=== PATIENT | female | born 1960 | race African-American/Black ===

== ENCOUNTER 2023-03-03 22:27 | Emergency (ER) | payer SELFPAY ==
[~2023-03-03 22:27] MED LIST: LIDOCAINE PATCH REMOVAL MC SCH
[2023-03-03 22:31] VITALS: BP 107/68; PULSE 70; RESP 18; TEMP 98.1; BMI 36.6
[2023-03-03] MEDS ORDERED: ACETAMINOPHEN 1000 MG/100 ML BAG IVPB ONE (23:04)
[2023-03-03] MEDS ORDERED: METHOCARBAMOL 500 MG TABLET PO ONE (23:16)
[2023-03-03] MEDS ORDERED: KETOROLAC TROMETHAMINE 30 MG/1 ML VIAL IM ONE (23:16)
[2023-03-03] MEDS ORDERED: LIDOCAINE 5% TOPICAL PATCH TP ONE (23:16)
[2023-03-03] MEDS ORDERED: METHOCARBAMOL 500 MG TABLET ONE (23:21)
[2023-03-03] MEDS ORDERED: KETOROLAC TROMETHAMINE 15 MG/ML VIAL ONE (23:22)
[2023-03-03] MEDS ORDERED: SODIUM CHLORIDE 0.9% 500 ML INFUS.BAG IV ONE (23:38)
== END 2023-03-04 00:52 | disposition home or self-care (01) ==
LOC: JER 22:27
PROC: 3E0233Z Introduction of Anti-inflammatory into Muscle, Percutaneous Approach (ICD-10-PCS; principal; 2023-03-03)
DX: M25.511 Pain in right shoulder (principal); M54.6 Pain in thoracic spine; M54.2 Cervicalgia; R20.0 Anesthesia of skin; M62.838 Other muscle spasm
CPT/HCPCS: 73030-TC-RT-FY; 99284-25